=== PATIENT | female | born 1935 | race Caucasian/White ===

== ENCOUNTER → 2018-09-30 | Outpatient (CLI) | payer OTHER ==
[~2018-09-30] MED LIST: APAP500 PO; ASPIRIN; ASPIRIN325 PO; BAYER BACK & B1 EACH PO; CALCIUM +D & M1 EACH PO; DARVOCET-N 1001 EACH PO; DIGOXIN125 MCG; DILTIAZEM 24HR300 M2 PO; ESTRACE0.5 MG PO; FLECAINIDE ACE100 MG PO; FOSAMAX 70 MG T70 M1 PO; FOSINOPRIL SODI40 M1 PO; FOSINOPRIL-HCT1 EACH PO; HYDROCODONE-AP1 EAC6 PO; LANOXIN 0.250.25 M1 PO; LEVOTHYROXIN0.112 M1 PO; LEVOTHYROXIN0.125 M1 PO; NASAL DECONGESTANT; NEURONTIN 300300 M1 PO; NORCO 5-325 TA1 EACH PO; OCUVITE TABLET1 EAC1 PO; ONE DAILY COMP1 EAC1 PO; ONE DAILY COMP1 EACH PO; PERCOCET; PREMARIN0.3 MG; PREMARIN0.625 MG PO; PRILOSEC 20 MG20 MG PO; ULTRAM 50MG TAB50 MG PO; VITAMIN C + RO500 MG PO; VITAMIN D2000 UNIT PO; ZOFRAN ODT4 MG PO
== END ==
LOC: RAD 01:20
DX: Z12.31 Encounter for screening mammogram for malignant neoplasm of breast (principal)

== ENCOUNTER 2018-11-14 19:20 | Emergency (ER) | payer OTHER ==
[~2018-11-14] VITALS: Ht 154.9 cm; Wt 56.7 kg
[2018-11-14 19:44] LABS: ABSOLUTE NEUTROPHILS 8.4 thou/uL (1.4-8.2); BASOPHILS 0.7 % (0.0-2.0); EOSINOPHILS 1.2 % (0.0-3.0); HEMOGLOBIN 11.4 gm/dL (12.0-15.0); LYMPHOCYTES 12.9 % (24.0-44.0); MCH 32.2 pg (26.0-34.0); MCHC 33.4 g/dL (28.0-37.0); MCV 96.5 fL (80.0-100.0); MONOCYTES 5.5 % (1.0-8.0); PLATELET COUNT 369 thou/uL (150-400); POLYS 79.7 % (36.0-66.0); RBC 3.53 mil/uL (4.20-5.00); RDW 14.1 % (10.5-14.5); WBC 10.6 thou/uL (4.0-11.0)
[2018-11-14] MEDS ORDERED: CARTIA XT240 M1 PO (19:44)
[2018-11-14] MEDS ORDERED: PRADAXA75 MG PO (19:45)
[2018-11-14] MEDS ORDERED: PROTONIX40 M1 PO (19:46)
[2018-11-14] MEDS ORDERED: SYNTHROID137 MC1 PO (19:47)
[2018-11-14 19:49] LABS: CALCIUM 9.6 mg/dL (8.5-10.1); CREATININE 1.8 mg/dL (0.6-1.0); POTASSIUM 4.2 mmol/L (3.5-5.1)
[2018-11-14 20:00] LABS: INR 1.3; PROTIME 13.9 Seconds (9.3-11.4)
[2018-11-14 22:25] VITALS: BP 122/48
== END 2018-11-14 22:27 | disposition home or self-care (01) ==
LOC: ER 19:20
PROVIDERS: Student in an Organized Health Care Education/Training Program
DX: S09.8XXA Other specified injuries of head, initial encounter (principal); R07.81 Pleurodynia; Z90.49 Acquired absence of other specified parts of digestive tract; Z90.710 Acquired absence of both cervix and uterus; W10.8XXA Fall (on) (from) other stairs and steps, initial encounter; Y93.89 Activity, other specified; Y92.89 Other specified places as the place of occurrence of the external cause; Y99.8 Other external cause status

== ENCOUNTER 2019-01-15 09:33 | Inpatient (IN) | payer OTHER ==
[~2019-01-15] VITALS: Ht 154.9 cm; Wt 55.3 kg
--- NOTE | ~2019-01-15 | P ---
[facility] [place] [address] [place] [address] PROCEDURE REPORT Name: MIRIAM GREENFIELD Room #: 462-P [facility] IN .R.#: [id number] Admission: 01/15/19 ������������������ Attend Phys: Carmen Desai Discharge: 01/17/19 ������������������ Date of : 33 Report #: [id number] THIS REPORT FOR: //name// CC: David Desai MD DATE OF SERVICE: 01/17/2019 PROCEDURE PERFORMED: Upper endoscopy with biopsies. HISTORY OF PRESENT ILLNESS: The patient is an 83-year-old female who was admitted through the emergency room on 01/15/2019 for black stools. She has a previous history of gastric ulcer many years ago. Denies any abdominal pain. She does have loose stools at times, has reflux off and on for several years, takes Tums [id number]-dbc-[id number]. She denies any dysphagia. Last EGD and colonoscopy were reportedly approximately 10 years ago. Stools are Hemoccult negative x 1 here. She began taking iron supplement about 3 weeks ago. Her hemoglobin has been stable in the 11 range and her stools Hemoccult negative. The patient was on Coumadin on admission with an INR initially of 8.2. This is now at 1.3. Plan is for EGD and colonoscopy today. DESCRIPTION OF PROCEDURE: The risks and benefits of the procedure were explained to the patient and those risks including but not limited to bleeding, perforation and the risk of sedation. She understood these risks and gave informed consent. Sedation was given using propofol per Anesthesia. Next, using a standard Olympus upper endoscope, the scope was placed in the patient's mouth and advanced under direct vision through the esophagus, stomach and into the second portion of the duodenum. The larynx was normal in appearance. The upper and mid esophagus was normal. In the distal esophagus, possible short segment of Hernandez's was noted. Biopsies were obtained. No evidence of esophagitis. Overall, the gastric mucosa was normal in the fundus, there was a mild gastritis in the mid body. No evidence of erosions or ulcerations. No bleeding was noted throughout the exam today. Biopsies were obtained to rule out H. pylori. The pylorus was normal and patent. The duodenal bulb, first and second portion were all normal. The scope was then withdrawn and the procedure terminated. The patient tolerated the procedure well. IMPRESSION: 1. 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 2. Mild gastritis. No evidence of bleeding. 3. Otherwise, normal upper endoscopy. RECOMMENDATIONS: 1. Await biopsy results. 2. Continue daily PPI therapy. [address] [address] PROCEDURE REPORT Name: SONIYA GREENFIELDN Elizabeth Room #: 462-P [facility] M.R.#: [id number] Admission: 01/15/19 ������������������ Attend Phys: Carmen Desai Discharge: 01/17/19 ������������������ Date of : 33 Report #: [id number] 3. We will proceed with colonoscopy next today. Thank you for allowing me to participate in her care. ��������������������������������������������� ���������������������������������������� By: ��������������������������������������������� 1341 [id number] Jackson Garcia MD /sanju
--- NOTE | ~2019-01-15 | P ---
[facility] [place] [address] [place] [address] PROCEDURE REPORT Name: MIRIAM GREENFIELD Room #: 462-P [facility] IN ..#: [id number] Admission: 01/15/19 ������������������ Attend Phys: Carmen Desai Discharge: 01/17/19 ������������������ Date of : 33 Report #: [id number] THIS REPORT FOR: //name// CC: David Desai MD DATE OF SERVICE: 01/17/2019 PROCEDURE PERFORMED: Colonoscopy with polypectomy. HISTORY OF PRESENT ILLNESS: The patient is an 83-year-old female with recent dark stools. She is Hemoccult negative on admission. Her hemoglobin is 11, which has been stable. She was on Coumadin. Her INR on admission was in the 8 range, it is now 1.3. Last colonoscopy was greater than 10 years ago. No family history of colon cancer. Denies any abdominal pain. EGD was just performed, which showed mild gastritis and possible short segment Hernandez's esophagus, otherwise normal. DESCRIPTION OF PROCEDURE: The risks and benefits of the procedure were explained to the patient, those risks including but not limited to bleeding, perforation, the risk of sedation. She understood these risks and gave informed consent. Sedation was given using propofol per Anesthesia. Next, a digital rectal exam showed external hemorrhoids, nonbleeding, otherwise normal. Next, using a standard Olympus colonoscope, the scope was placed in the patient's anus and advanced under direct vision to the cecum. The overall prep was excellent. The cecum and ileocecal valve were normal in appearance. Terminal ileum was intubated and normal in appearance. Ascending colon was normal. A few small diverticula noted in the transverse colon. Multiple diverticula in the descending and sigmoid colon, no evidence of inflammation or stigmata of recent bleeding. In the sigmoid colon, there was a 6 mm sessile polyp, this was removed by snare cautery. In the rectum, there was a 3 mm sessile polyp, this was removed by cold forceps. On retroflexion, no abnormalities were noted. The scope was then withdrawn and the procedure terminated. The patient tolerated the procedure well. IMPRESSION: 1. Left-sided diverticulosis, no stigmata of recent bleeding. 2. Two small colonic polyps. 3. External hemorrhoids. No bleeding. 4. Otherwise, normal colonoscopy. RECOMMENDATIONS: 1. Await biopsy results. 2. The patient does not need to have repeat colonoscopy due to her age. 3. There are no signs of bleeding on EGD or colonoscopy today. Recent stool [address] [address] PROCEDURE REPORT Name: SONIYA GREENFIELDN Elizabeth Room #: 462-P [facility] IN M.R.#: [id number] Admission: 01/15/19 ������������������ Attend Phys: Carmen Desai Discharge: 01/17/19 ������������������ Date of : 33 Report #: [id number] test was heme negative, would recommend continuing PPI therapy and monitoring her hemoglobin. Thank you for allowing me to participate in her care. ��������������������������������������������� ���������������������������������������� By: ��������������������������������������������� 1344 [id number] Jackson Garcia MD /nt
[~2019-01-15 09:33] MED LIST changes: +CARTIA XT240 M1 PO; +PRADAXA75 MG PO; +PROTONIX40 M1 PO; +SYNTHROID137 MC1 PO
[2019-01-15 09:34] VITALS: BP 123/69
[2019-01-15] MEDS ORDERED: SPIRONOLACTONE25 M1 PO (09:38)
[2019-01-15] MEDS ORDERED: COUMADIN 2 MG TA2 M1 PO (09:39)
[2019-01-15 10:04] LABS: ABSOLUTE NEUTROPHILS 5.2 thou/uL (1.4-8.2); BASOPHILS 0.7 % (0.0-2.0); EOSINOPHILS 0.9 % (0.0-3.0); HEMATOCRIT 39.6 % (37.0-47.0); HEMOGLOBIN 12.9 gm/dL (12.0-15.0); LYMPHOCYTES 21.8 % (24.0-44.0); MCH 31.6 pg (26.0-34.0); MCHC 32.5 g/dL (28.0-37.0); MCV 97.2 fL (80.0-100.0); MONOCYTES 7.2 % (1.0-8.0); PLATELET COUNT 242 thou/uL (150-400); POLYS 69.4 % (36.0-66.0); RBC 4.08 mil/uL (4.20-5.00); RDW 14.4 % (10.5-14.5); WBC 7.5 thou/uL (4.0-11.0)
[2019-01-15 10:14] LABS: CALCIUM 9.7 mg/dL (8.5-10.1); CREATININE 1.6 mg/dL (0.6-1.0)
[2019-01-15 10:21] LABS: INR 8.2
[2019-01-15 10:22] LABS: ALBUMIN 3.7 g/dL (3.4-5.0); PROTIME 84.4 Seconds (9.3-11.4); TOTAL BILIRUBIN 0.5 mg/dL (<0.1-1.0); TOTAL PROTEIN 8.4 g/dL (6.4-8.2)
[2019-01-15 13:19] VITALS: BP 148/51
[2019-01-15 15:13] VITALS: BP 135/53
[2019-01-15 18:22] LABS: HEMATOCRIT 35.6 % (37.0-47.0); HEMOGLOBIN 11.8 gm/dL (12.0-15.0)
[2019-01-15 19:16] VITALS: BP 150/53
[2019-01-16 03:21] VITALS: BP 137/50
[2019-01-16 05:03] LABS: HEMATOCRIT 35.6 % (37.0-47.0); HEMOGLOBIN 11.7 gm/dL (12.0-15.0); MCH 31.8 pg (26.0-34.0); MCHC 32.9 g/dL (28.0-37.0); MCV 96.6 fL (80.0-100.0); RBC 3.69 mil/uL (4.20-5.00); RDW 14.5 % (10.5-14.5); WBC 7.5 thou/uL (4.0-11.0)
[2019-01-16 05:09] LABS: PROTIME 22.8 Seconds (9.3-11.4)
[2019-01-16 05:19] LABS: INR 2.2
--- NOTE | 2019-01-16 05:53 | NUR ---
PT HAD 4 LOOSE STOOLS OVERNIGHT BUT NONE WERE DARK OR HAD EVIDENCE OF BLOOD. PT DENIED PAIN ALL NIGHT. HAD LIMITED SLEEP D/T MULTIPLE TRIPS TO THE BATHROOM. INR WENT FROM 8.2 ON ADMIT TO 2.2. PROGRESSING TOWARDS MEETING GOALS.
[2019-01-16 07:50] VITALS: BP 134/55
[2019-01-16 14:10] VITALS: BP 155/67
--- NOTE | 2019-01-16 16:32 | NUR ---
PT ADMITTED RELATED TO GI BLEED. CM REVIEWED CHART AND SPOKE WITH CARE TEAM. CM MET WITH PT AT BEDSIDE. PT IS A&O X4. CM ROLE INTRODUCED. PT INDICATED SHE LIVES IN A HOUSE WITH THREE DOES, PT INDICATED THERE AT 2 STEPS TO ENTER AND NO STEPS INSIDE. PT INDICATED NO HOME HEALTH HX. PT INDICATED SHE USES A FWW OR A 4WW WHEN SHE LEAVES THE HOUSE. PT INDICATED SHE PLANS TO RETURN HOME ONCE MEDICALLY STABLE. CM TO FOLLOW INDICATED WITH DC PLANNING.
[2019-01-16 19:51] VITALS: BP 155/65
[2019-01-17 04:04] LABS: HEMOGLOBIN 11.1 gm/dL (12.0-15.0)
[2019-01-17 04:15] VITALS: BP 147/77
[2019-01-17 04:15] LABS: INR 1.3
[2019-01-17 07:23] VITALS: BP 138/62
[2019-01-17 14:51] VITALS: BP 124/51
--- NOTE | 2019-01-17 15:26 | NUR ---
ASSUMED CARE PT AT 0700. ALERTX4, VSS, NPO FOR EGD/COLONOSCOPY WITH REPORT OF NEG FOR GI BLEED. PT TOLERATING FOOD AT THIS TIME. PAIN MANAGED WITH MEDICATIONS AND WARM BLANKET TO THE BACK FOR COMFORT. PLANS TO DC HOME TODAY AFTER 4PM. BED ALARM SET. CALL LIGHT IN REACH.
[2019-01-17] MEDS ORDERED: COUMADIN 1MG TAB1 M1 PO (17:06)
[2019-01-17 17:33] VITALS: BP 124/51
--- NOTE | 2019-01-20 17:07 | PATH ---
[facility] [place] [address] [place] [address] PATHOLOGY RPT PROCEDURE Name: MIRIAM GREENFIELD Room #: 462-P [facility] IN M.R.#: [id number] ������������������ Admission: 01/15/19 ������������������ Date of : 33 Discharge: 01/17/19 Report #: [id number] Path Case #: [id number] [facility] Accession Number: [id number] . 01 Material submitted: . PART A: BX GASTRITIS R/O H. PYLORI PART B: BX DISTAL ESOPHAGUS R/O OCONNOR'S PART C: POLYP AT SIGMOID COLON PART D: POLYP AT RECTUM . 01 Clinical history: . Pre-OP DX: Melena, anemia Post-OP DX: Gastritis, diverticulosis, colon polyps . 02 Diagnosis: A. Gastric mucosa, gastritis, rule out H. pylori, endoscopic biopsy: - Mild chronic inflammation. - Negative for intestinal metaplasia or atrophy. - Negative for Helicobacter pylori (properly-controlled immunohistochemical stain performed). . B. Gastroesophageal mucosa, distal esophagus, rule out Oconnor's, endoscopic biopsy: - Specialized columnar epithelium (gastric cardia-type mucosa) with intestinal metaplasia, compatible with Oconnor's metaplasia. - Negative for dysplasia. - Squamous mucosa with mild esophagitis and changes compatible with reflux esophagitis. . C. Polyp, at sigmoid colon, endoscopic biopsy: - Tubular adenoma. - Negative for high grade dysplasia. . D. Polyp, at rectum, endoscopic biopsy: - Tubular adenoma. - Negative for high grade dysplasia. . (IUV:mml; 01/20/2019) [facility]/01/20/2019 . 02 Comment: The above diagnosis of Oconnor's esophagus is made due to presence of intestinal metaplasia and with the assumption that the biopsies were obtained from the columnar mucosa in the distal esophagus located at least 1 cm proximal to the top of the gastric folds as per the 2016 ACG guidelines. . [address] [address] PATHOLOGY RPT PROCEDURE Name: MIRIAM GREENFIELD Room #: 462-P [facility] IN M.R.#: [id number] ������������������ Admission: 01/15/19 ������������������ Date of : 34 Discharge: 01/17/19 Report #: [id number] Path Case #: [id number] (IUV:mml; 01/20/2019) . 02 Electronically signed: . Isha Espinoza MD, Pathologist NPI- [id number] . 01 Gross description: . A. Received in formalin labeled "Miriam Greenfield, BX gastritis, rule out H. pylori," are 3 segments of sykes soft tissue measuring 0.9 x 0.7 x 0.3 cm in aggregate dimensions and ranging from 0.3 to 0.6 cm in maximum dimension. The specimen is submitted entirely in cassette A1. . B. Received in formalin labeled "Miriam Greenfield, BX distal esophagus, rule out Oconnor's," are 2 segments of sykes soft tissue measuring 0.7 x 0.2 x 0.2 cm in aggregate dimensions and ranging from 0.3 to 0.4 cm in maximum dimension. The specimen is submitted entirely in cassette B1. . C. Received in formalin labeled "Miriam Greenfield, polyp sigmoid colon," is a single segment of sykes soft tissue measuring 0.6 cm in maximum dimension. The specimen is entirely submitted in cassette C1. . D. Received in formalin labeled "Miriam Greenfield, polyp rectum," are 2 segments of sykes soft tissue measuring 0.7 x 0.2 x 0.2 cm in aggregate dimensions and ranging from 0.3 to 0.4 cm in maximum dimension. The specimen is submitted entirely in cassette D1. (TSD; 01/17/2019) TOB/TOB . 02 Pathologist provided ICD-10: K29.50, K22.70, K21.0, D12.5, D12.8 . 02 CPT . 608660, [id number], [id number], [id number], [id number] Specimen Comment: A courtesy copy of this report has been sent to Specimen Comment: [phone], , . Specimen Comment: Report sent to , and Performed at: [address] [facility] [address], [place], [place] [id number] MD Sukhi Edwards MD Phone: [phone] Performed at: [address] [facility] [id number] MD Isha Espinoza MD Phone: [phone]
== END 2019-01-17 18:30 | disposition home or self-care (01) | DRG 378 ==
LOC: ER 09:33 → EROBS 13:00 → 4W 13:00 → ENTRNSPT 01-17 17:48 → 4W 01-17 18:30
PROVIDERS: Internal Medicine Gastroenterology; Physician Assistant; ADMIT Hospitalist
DX: K57.31 Diverticulosis of large intestine without perforation or abscess with bleeding (principal); D62 Acute posthemorrhagic anemia; D68.9 Coagulation defect, unspecified; K29.70 Gastritis, unspecified, without bleeding; K21.9 Gastro-esophageal reflux disease without esophagitis; E03.9 Hypothyroidism, unspecified; I48.91 Unspecified atrial fibrillation; K63.5 Polyp of colon; K64.4 Residual hemorrhoidal skin tags; I10 Essential (primary) hypertension; Z60.2 Problems related to living alone; M62.84 Sarcopenia; Z90.49 Acquired absence of other specified parts of digestive tract; Z90.710 Acquired absence of both cervix and uterus; Z98.49 Cataract extraction status, unspecified eye; Z80.0 Family history of malignant neoplasm of digestive organs; Z79.01 Long term (current) use of anticoagulants; Z79.899 Other long term (current) drug therapy
CPT/HCPCS: 10045; 62110; 62900; 70005

== ENCOUNTER → 2019-10-01 | Outpatient (CLI) | payer OTHER ==
[~2019-10-01] MED LIST changes: +COUMADIN 1MG TAB1 M1 PO; +COUMADIN 2 MG TA2 M1 PO; +SPIRONOLACTONE25 M1 PO
== END ==
LOC: RAD 13:23
DX: Z12.31 Encounter for screening mammogram for malignant neoplasm of breast (principal)

== ENCOUNTER 2020-05-01 15:41 | Emergency (ER) | payer OTHER ==
[~2020-05-01] VITALS: Ht 154.9 cm; Wt 53.5 kg
[2020-05-01] MEDS ORDERED: COUMADIN 1MG TAB1 M1 PO (16:10)
[2020-05-01 16:19] LABS: INR 2.2; PROTIME 22.1 Seconds (9.3-11.4)
[2020-05-01 17:21] VITALS: BP 118/56
== END 2020-05-01 17:22 | disposition still patient (30) ==
LOC: ER 15:41
PROVIDERS: Emergency Medicine
DX: S00.03XA Contusion of scalp, initial encounter (principal); E03.9 Hypothyroidism, unspecified; Z79.899 Other long term (current) drug therapy; Z79.01 Long term (current) use of anticoagulants; Z90.710 Acquired absence of both cervix and uterus; W01.198A Fall on same level from slipping, tripping and stumbling with subsequent striking against other object, initial encounter; Y93.89 Activity, other specified; Y92.89 Other specified places as the place of occurrence of the external cause; Y99.8 Other external cause status

== ENCOUNTER 2020-05-02 09:32 | Emergency (ER) | payer OTHER ==
[~2020-05-02] VITALS: Ht 154.9 cm; Wt 56.7 kg
[2020-05-02 10:45] VITALS: BP 134/55
== END 2020-05-02 11:18 | disposition home or self-care (01) ==
LOC: ER 09:32
DX: S01.00XD Unspecified open wound of scalp, subsequent encounter (principal); E03.9 Hypothyroidism, unspecified; Z90.710 Acquired absence of both cervix and uterus; Z79.01 Long term (current) use of anticoagulants; Z79.899 Other long term (current) drug therapy; W19.XXXD Unspecified fall, subsequent encounter

== ENCOUNTER → 2020-10-04 | Outpatient (CLI) | payer OTHER | LOC: BC 09:11 | PROVIDERS: ATTEND Family Medicine | DX: Z12.31 Encounter for screening mammogram for malignant neoplasm of breast (principal) ==

== ENCOUNTER → 2020-11-02 | Outpatient (CLI) | payer OTHER | LOC: SJCVC 10:09 | PROVIDERS: ATTEND Internal Medicine | DX: I48.21 Permanent atrial fibrillation (principal); R94.31 Abnormal electrocardiogram [ECG] [EKG]; I10 Essential (primary) hypertension; I34.0 Nonrheumatic mitral (valve) insufficiency; E78.5 Hyperlipidemia, unspecified; E03.9 Hypothyroidism, unspecified; K21.9 Gastro-esophageal reflux disease without esophagitis; Z79.01 Long term (current) use of anticoagulants; Z79.899 Other long term (current) drug therapy ==

== ENCOUNTER → 2021-04-13 | Outpatient (CLI) | payer OTHER | LOC: SJCVC 14:01 | PROVIDERS: ATTEND Internal Medicine | DX: R94.31 Abnormal electrocardiogram [ECG] [EKG] (principal); I48.21 Permanent atrial fibrillation; I10 Essential (primary) hypertension; I34.0 Nonrheumatic mitral (valve) insufficiency; E78.5 Hyperlipidemia, unspecified; E03.9 Hypothyroidism, unspecified; K21.9 Gastro-esophageal reflux disease without esophagitis; Z79.01 Long term (current) use of anticoagulants; Z79.899 Other long term (current) drug therapy ==

== ENCOUNTER → 2021-05-18 | Outpatient (CLI) | payer OTHER | LOC: RAD 13:04 | PROVIDERS: ATTEND Family Medicine | DX: D71 Functional disorders of polymorphonuclear neutrophils (principal); M47.814 Spondylosis without myelopathy or radiculopathy, thoracic region ==

== ENCOUNTER → 2021-10-05 | Outpatient (CLI) | payer OTHER | LOC: BC 09:42 | PROVIDERS: ATTEND Occupational Therapy Assistant | DX: Z12.31 Encounter for screening mammogram for malignant neoplasm of breast (principal); N64.89 Other specified disorders of breast ==

== ENCOUNTER → 2021-10-13 | Outpatient (CLI) | payer OTHER | LOC: SJCVC 11:29 | PROVIDERS: ATTEND Internal Medicine | DX: R94.31 Abnormal electrocardiogram [ECG] [EKG] (principal); I48.21 Permanent atrial fibrillation; I10 Essential (primary) hypertension; I34.0 Nonrheumatic mitral (valve) insufficiency; E78.5 Hyperlipidemia, unspecified; E03.9 Hypothyroidism, unspecified; K21.9 Gastro-esophageal reflux disease without esophagitis; Z79.899 Other long term (current) drug therapy ==